=== PATIENT | male | born 1995 | race African-American/Black ===

== ENCOUNTER → 2018-03-01 13:18 | Outpatient (CLI) | payer BC, SELFPAY ==
[2018-03-07 16:09] LABS: H. PYLORI STOOL AG Negative (Negative)
== END ==
PROVIDERS: Family Provider Pediatrics; PCP Pediatrics; Referring Provider Pediatrics; Visit Provider Pediatrics
DX: R19.7 Diarrhea, unspecified (principal)
CPT/HCPCS: 82274; 87506

== ENCOUNTER → 2020-01-08 13:24 | Outpatient (CLI) | payer BC, SELFPAY ==
[2020-01-08 16:25] LABS: HIV - WCH Non-Reactive (Nonreactive)
[2020-01-08 19:09] LABS: Chlamydia Trachomatis by PCR POSITIVE (Negative); Neisserai gonorrhoeae by PCR Negative (Negative); Probe Check PASS; Sample Adequacy Control PASS; Specimen Processing Control PASS
[2020-01-15 02:10] LABS: Rapid Plasmin Reagin (RPR) NONREACTIVE (NONREACTIVE)
== END ==
LOC: BFHLAB 13:25
PROVIDERS: PCP Family Medicine; Visit Provider Family Medicine
DX: Z20.9 Contact with and (suspected) exposure to unspecified communicable disease (principal)
CPT/HCPCS: 36415; 86592; 86703; 87491; 87591